=== PATIENT | male | born 1955 | race Caucasian/White ===

== ENCOUNTER → 2017-12-01 | Day surgery (SDC) | payer OTHER ==
[~2017-12-01] MED LIST: CEFTRIAXONE SOD 1 GM VIAL ONE; CHLORTHALIDONE25 MG PO; FENTANYL CITRATE/PF 100MCG/2 ML INJ ONE; GLIMEPIRIDE2 MG PO; LIDOCAINE HCL 2% LOCAL INJ 5 ML SDV VIAL INJ ONE; LISINOPRIL2.5 MG PO; LOVASTATIN40 MG PO; METFORMIN HCL500 MG PO; MIDAZOLAM HCL 2 MG/2 ML VIAL ONE; PANTOPRAZOLE SO40 MG PO; PROAIR HFA INH8.5 GM PO; PROPOFOL IV EMULSION 10 MG/ML 20 ML VIAL ONE; SUCRALFATE1 GM PO; VITAMIN C500 M4 PO
--- NOTE | 2017-12-01 11:18 | Diagnostic Imaging Report ---
PROCEDURE: Frontal and lateral views of the chest. COMPARISON: None. INDICATIONS: PRE OPERATIVE CHEST X-RAY FOR BLADDER TUMOR FINDINGS: Lines/tubes: None. Lungs: The lungs are well inflated. Left basilar opacity, likely atelectasis. There is no evidence of pneumonia or pulmonary edema. Pleura: There is no pleural effusion or pneumothorax. Heart and mediastinum: The cardiomediastinal silhouette is unremarkable. Bones: No acute bony abnormality. IMPRESSION: No acute cardiopulmonary disease. Dictated by: POWER MCCLAIN M.D. on 12/01/2017 at 11:15 Electronically approved by: POWER MCCLAIN M.D. on 12/01/2017 at 11:15
[2017-12-01 11:54] LABS: BASOPHILS # (AUTO) 0.1 (0.0-0.1); BASOPHILS % 1.3 % (0.0-1.0); EOSINOPHILS # (AUTO) 0.4 (0.0-0.4); EOSINOPHILS % 4.7 % (0.0-6.0); HEMATOCRIT 30.6 % (38.2-49.6); HEMOGLOBIN 9.2 g/dL (14.0-18.0); LYMPHOCYTES % 26.1 % (18.0-39.1); MEAN CORPUSCULAR HEMOGLOBIN 22.1 pg (28-32); MEAN CORPUSCULAR HGB CONC 30.1 g/dL (31-35); MEAN CORPUSCULAR VOLUME 73.6 fL (81-99); MONOCYTES # (AUTO) 0.8 (0.2-0.8); MONOCYTES % 10.2 % (4.4-11.3); NEUTROPHILS # (AUTO) 4.3 (2.1-6.9); NEUTROPHILS % 56.9 % (38.7-80.0); PLATELET COUNT 388 x10e3/uL (140-360); RED BLOOD COUNT 4.16 x10e6/uL (4.3-5.7); RED CELL DISTRIBUTION WIDTH 17.5 % (11.7-14.4)
--- OUTSIDE RECORDS SUMMARY | 2018-01-21 02:16 | XMS REPORT ---
Author Author [facility] Address Unknown Phone Unavailable Care Team Providers Care Deicer Repairer Name Role Phone JAIME HOLLINGSWORTH Unavailable Unavailable Problems This patient has no known problems. Allergies, Adverse Reactions, Alerts This patient has no known allergies or adverse reactions. Medications This patient has no known medications. Results Test Description Test Time Test Comments Text Results Atomic Results Result Comments CHEST 2 VIEWS 2017-12-01 11:15:00 [place] [id number] Patient Name: SIDDHARTH GUTIERREZ MR #: [id number] : 1955 Age/Sex: 62/M Req #: [id number] [facility] Physician: Ordered by: JAIME HOLLINGSWORTH MD Report #: [id number] Location: OR Room/Bed: Procedure: [id number] DX/CHEST 2 VIEWS Exam Date: 12/01/17 Exam Time: 1025 REPORT STATUS: Signed PROCEDURE: Frontal and lateral views of the chest. COMPARISON: None. INDICATIONS: PRE OPERATIVE CHEST X-RAY FOR BLADDER TUMOR FINDINGS: Lines/tubes: None. Lungs: The lungs are well inflated. Left basilar opacity, likely atelectasis. There is no evidence of pneumonia or pulmonary edema. Pleura: There is no pleural effusion or pneumothorax. Heart and mediastinum: The cardiomediastinal silhouette is unremarkable. Bones: No acute bony abnormality. IMPRESSION: No acute cardiopulmonary disease. Dictated by: POWER MCCLAIN M.D. on 12/01/2017 at 11:15 Electronically approved by: POWER MCCLAIN M.D. on 12/01/2017 at 11:15 Dictated By: POWER MCCLAIN MD [id number] COPY TO: JAIME HOLLINGSWORTH MD
--- OUTSIDE RECORDS SUMMARY | 2018-01-21 02:16 | XMS REPORT | Clinical Summary ---
Author Author [facility] Organization [facility] Address Unknown Phone Unavailable Care Team Providers Care Liquor Runner Name Role Phone Tonya Encarnacion MD PCP Allergies No Known Allergies Current Medications Prescription Sig. Disp. Refills Start End Date Status Date MULTIVIT-MINS/IRON/FOLIC/ Take by mouth. Active LYCOP (CENTRUM MEN ORAL) pantoprazole (PROTONIX) Take 40 mg by mouth Active 40 MG EC tablet daily. chlorthalidone (HYGROTEN) Take 25 mg by mouth Active 25 MG tablet daily. glimepiride (AMARYL) 2 MG Take 2 mg by mouth daily Active tablet before breakfast. ticagrelor (BRILINTA) 90 Take 90 mg by mouth 2 Active mg tablet (two) times a day. metFORMIN (GLUCOPHAGE) Take 1,000 mg by mouth 2 Active 1,000 mg tablet (two) times a day with meals. aspirin (ECOTRIN) 81 MG Take 81 mg by mouth Active enteric coated tablet daily. lisinopril Take 5 mg by mouth daily. Active (PRINIVIL,ZESTRIL) 5 mg tablet albuterol (PROAIR Inhale 2 puffs every 6 Active HFA,PROVENTIL (six) hours as needed for HFA,VENTOLIN HFA) 90 wheezing. mcg/actuation inhaler LACTOSE-REDUCED FOOD Take by mouth. Active (ENSURE IMMUNE HEALTH ORAL) lovastatin (MEVACOR) 40 Take 40 mg by mouth 2 01/08/20 Active MG tablet nightly. 17 pravastatin (PRAVACHOL) Take 40 mg by mouth Active 40 MG tablet daily. NTS STEP 1 21 mg/24 hr See Admin Instructions. 6 05/09/19 Active 18 sucralfate (CARAFATE) 1 Take 1 g by mouth 3 2 05/03/19 Active gram tablet (three) times a day. 18 STIOLTO RESPIMAT 2.5-2.5 TAKE 2 INHALATIONS BY 4 g 2 08/12/19 Active mcg/actuation inhalation MOUTH ONCE DAILY. 18 solution lovastatin (MEVACOR) 10 Take 40 mg by mouth 02/04/20 Discontin MG tablet nightly. 17 ued tiotropium-olodaterol Take 2 inhalations by 1 each 2 01/09/20 (STIOLTO RESPIMAT) mouth daily for 30 days. 17 17 2.5-2.5 mcg/actuation inhalation solution STIOLTO RESPIMAT 2.5-2.5 TAKE 2 INHALATIONS BY 2 04/08/20 05/15/19 Discontin mcg/actuation inhalation MOUTH DAILY FOR 30 DAYS. 17 18 ued solution STIOLTO RESPIMAT 2.5-2.5 Take 2 inhalations by 4 g 2 05/15/19 Discontin mcg/actuation inhalation mouth once daily. 18 18 ued solution Active Problems Problem Noted Date Iron deficiency anemia due to chronic blood loss 01/09/2017 Overview: 2018 Regulatory BERNARDO (obstructive sleep apnea) Encounters Date Type Specialty Care Team Description 08/14/2017 Office Visit Pulmonology Satya Narvaez, Obstructive chronic MD bronchitis without exacerbation (Primary Dx); Tobacco dependence; Obstructive sleep apnea; Obesity due to excess calories, unspecified obesity severity; History of asbestos exposure 08/11/2017 Refill Pulmonology Satya Narvaez MD 05/15/2017 Office Visit Pulmonology Satya Narvaez Obstructive chronic MD bronchitis without exacerbation (Primary Dx); Tobacco dependence; Obstructive sleep apnea; Obesity due to excess calories, unspecified obesity severity; Sleep disorder, shift work 05/09/2017 Refill Pulmonology Mark Graham MD 04/22/2017 Telephone Pulmonology Satya Narvaez MD 03/02/2017 Orders Only Pulmonology Satya Narvaez, BERNARDO ( obstructive sleep MD apnea) (Primary Dx) 02/16/2017 Procedure visit Oncology Nimo Ulloa, Anemia, unspecified type MD (Primary Dx); Iron deficiency anemia secondary to inadequate dietary iron intake 02/11/2017 Transcribe Access Nimo Ulloa, Iron deficiency anemia Orders MD secondary to inadequate dietary iron intake (Primary Dx); Anemia, unspecified type 02/03/2017 Office Visit Pulmonology Satya Narvaez Obstructive chronic MD bronchitis without exacerbation (Primary Dx); Tobacco dependence; Obstructive sleep apnea; Obesity due to excess calories, unspecified obesity severity; Sleep disorder, shift work; History of asbestos exposure 01/27/2017 Infusion Oncology Nimo Ulloa, Iron deficiency anemia MD secondary to inadequate dietary iron intake (Primary Dx); Iron deficiency anemia due to chronic blood loss 01/26/2017 Lab Lab Nimo Ulloa, Iron deficiency anemia MD secondary to inadequate dietary iron intake (Primary Dx) 01/26/2017 Transcribe Access Nimo Ulloa, Iron deficiency anemia Orders MD secondary to inadequate dietary iron intake (Primary Dx) 01/19/2017 Orders Only Pulmonology Ita Duque MA Obstructive chronic bronchitis without exacerbation (Primary Dx); Obstructive sleep apnea 01/09/2017 Infusion Oncology Nimo Ulloa, Iron deficiency anemia secondary to blood loss (chronic) (Primary Dx) 01/09/2017 Transcribe Access Nimo Ulloa, Iron deficiency anemia Orders MD secondary to blood loss (chronic) (Primary Dx) 01/08/2017 Office Visit Pulmonology Satya Narvaez Obstructive chronic MD bronchitis without exacerbation (Primary Dx) 12/18/2016 [facility] Radiology Satya Narvaez, Encounter 12/18/2016 [facility] Pulmonology Satya Narvaez, Encounter 12/04/2016 Orders Only Pulmonology Satya Narvaez DOE ( dyspnea on MD exertion); Obstructive sleep apnea (adult) (pediatric); Tobacco dependence; Encounter for screening for malignant neoplasm of respiratory organs 12/03/2016 Office Visit Pulmonology Satya Narvaez DOE ( dyspnea on exertion) (Primary Dx); Cough; Wheezing; Tobacco dependence; Obstructive sleep apnea (adult) (pediatric); Obesity due to excess calories, unspecified obesity severity; Encounter for screening for malignant neoplasm of respiratory organs; Sleep disorder, shift work; History of asbestos exposure after 12/02/2016 Family History Medical History Relation Name Comments No Known Problems Father Diabetes Mother Relation Name Status Comments Father Mother Social History Tobacco Use Types Packs/Day Years Used Date Current Every Day Smoker Cigarettes 0.25 45 Started: 12/04/1971 Smokeless Tobacco: Never Used Tobacco Cessation: Ready to Quit: Yes; Counseling Given: Yes Alcohol Use Drinks/Week oz/Week Comments Yes 1 Cans of 0.6 on occasion beer Sex Assigned at Date Recorded Not on file Last Filed Vital Signs Vital Sign Reading Time Taken Blood Pressure 117/71 08/14/2017 9:26 AM CDT Pulse 109 08/14/2017 9:26 AM CDT Temperature 36.6 C (97.8 F) 08/14/2017 9:26 AM CDT Respiratory Rate 13 08/14/2017 9:26 AM CDT Oxygen Saturation 98% 08/14/2017 9:26 AM CDT Inhaled Oxygen - - Concentration Weight 112 kg (247 lb) 08/14/2017 9:26 AM CDT Height 177.8 cm (5' 10") 08/14/2017 9:26 AM CDT Body Mass Index 35.44 08/14/2017 9:26 AM CDT Plan of Treatment Health Maintenance Due Date Last Done Comments COLON CANCER SCREENING 08/10/2007 SHINGRIX VACCINE (#1) 08/10/2007 ZOSTER VACCINE 2017 INFLUENZA VACCINE 11/18/2017 Procedures Procedure Name Priority Date/Time Associated Diagnosis Comments INSERT PERIPHERAL IV Routine 03/03/2017 Results for this 12:40 PM COMPUTER AIDED DESIGN TECHNICIAN procedure are in the results section. BONE MARROW BIOPSY W/OUT Routine 03/03/2017 Anemia, unspecified type Results for this SEDATION 12:40 PM COMPUTER AIDED DESIGN TECHNICIAN procedure are in the results section. BIOPSY BONE MARROW Routine 03/03/2017 Anemia, unspecified type Results for this 12:40 PM COMPUTER AIDED DESIGN TECHNICIAN procedure are in the results section. GENERAL SLEEP STUDY Routine 03/02/2017 Obstructive chronic 12:29 PM COMPUTER AIDED DESIGN TECHNICIAN bronchitis without exacerbation Obstructive sleep apnea MISCELLANEOUS REFERRAL Routine 02/16/2017 Results for this TEST 7:38 PM CDT procedure are in the results section. SURGICAL PATHOLOGY Routine 02/16/2017 Results for this REQUEST 2:49 PM CDT procedure are in the results section. FLOW CYTOMETRY EVALUATION Routine 02/16/2017 Results for this 2:49 PM CDT procedure are in the results section. MANUAL DIFFERENTIAL Routine 02/16/2017 Results for this 1:06 PM CDT procedure are in the results section. CBC WITH PLATELET AND Routine 02/16/2017 Results for this DIFFERENTIAL 1:06 PM CDT procedure are in the results section. TRANSFUSE RED BLOOD CELLS Routine 01/27/2017 Iron deficiency anemia 11:58 AM CDT due to chronic blood loss ZZESTIMATED GFR STAT 01/27/2017 Results for this 9:33 AM CDT procedure are in the results section. COMPREHENSIVE METABOLIC STAT 01/27/2017 Results for this PANEL 9:33 AM CDT procedure are in the results section. LDH STAT 01/27/2017 Results for this 9:33 AM CDT procedure are in the results section. HAPTOGLOBIN STAT 01/27/2017 Results for this 9:33 AM CDT procedure are in the results section. PREPARE RBC Routine 01/26/2017 Results for this 5:22 PM CDT procedure are in the results section. TYPE AND SCREEN Routine 01/26/2017 Iron deficiency anemia Results for this 5:22 PM CDT secondary to inadequate procedure are in the dietary iron intake results section. GENERAL SLEEP STUDY Routine 01/13/2017 Obstructive sleep apnea 3:05 PM CDT (adult) (pediatric) GENERAL SLEEP STUDY Routine 01/13/2017 12:00 AM CDT TRANSFUSE RED BLOOD CELLS Routine 01/09/2017 Iron deficiency anemia 3:44 PM CDT secondary to blood loss (chronic) PREPARE RBC Timed 01/09/2017 Iron deficiency anemia Results for this 10:55 AM CDT secondary to blood loss procedure are in the (chronic) results section. FOLATE RBC (GROUP TEST) STAT 01/09/2017 Results for this 10:55 AM CDT procedure are in the results section. TOTAL IRON BINDING STAT 01/09/2017 Results for this CAPACITY 10:55 AM CDT procedure are in the results section. VITAMIN B12 LEVEL STAT 01/09/2017 Results for this 10:55 AM CDT procedure are in the results section. TYPE AND SCREEN Timed 01/09/2017 Iron deficiency anemia Results for this 10:55 AM CDT secondary to blood loss procedure are in the (chronic) results section. CT CHEST LUNG CANCER Routine 12/18/2016 Tobacco dependence Results for this SCREENING 12:12 PM CDT Encounter for screening procedure are in the for malignant neoplasm of results section. respiratory organs after 12/02/2016 Results * Bone marrow biopsy w/out sedation (03/03/2017 12:40 PM) Procedure Note Nimo Ulloa MD - 02/16/2017 12:00 AM CDT [place], [place] PROCEDURE NOTE PATIENT NAME: SIDDHARTH GUTIERREZ ENCOUNTER NO: [id number] DATE OF : 1955 DATE OF ADMISSION: 02/16/2017 DATE OF PROCEDURE: 02/16/2017 ADMITTING PHYSICIAN: NIMO ULLOA MD RENDERING PROVIDER: NIMO ULLOA MD INDICATION: 1. Anemia and iron deficiency. 2. Failure to respond to iron infusion. PROCEDURE: Bone marrow aspirate and biopsy. The patient was prepped and draped in usual manner. The patient was cleaned with iodine. Next, a 2% Xylocaine was used to inject the right posterior iliac crest. Next, [employer] needle was introduced and marrow was easily aspirated. Next, a [employer] needle was introduced and 5 mL of marrow was aspirated. It was sent for flow cytometry as well as cytogenetics. Next, a Jamshidi needle was introduced and a core biopsy was obtained. The patient tolerated the procedure well. there are no complications. Estimated blood loss was negligible. [id number] Conf/ / Ref#: [id number] CC: [id number]/NIMO ULLOA MD * Biopsy bone marrow (03/03/2017 12:40 PM) Procedure Note Nimo Ulloa MD - 02/16/2017 12:00 AM CDT [place], [place] PROCEDURE NOTE PATIENT NAME: SIDDHARTH GUTIERREZ ENCOUNTER NO: [id number] DATE OF : 1955 DATE OF ADMISSION: 02/16/2017 DATE OF PROCEDURE: 02/16/2017 ADMITTING PHYSICIAN: NIMO ULLOA MD RENDERING PROVIDER: NIMO ULLOA MD INDICATION: 1. Anemia and iron deficiency. 2. Failure to respond to iron infusion. PROCEDURE: Bone marrow aspirate and biopsy. The patient was prepped and draped in usual manner. The patient was cleaned with iodine. Next, a 2% Xylocaine was used to inject the right posterior iliac crest. Next, [employer] needle was introduced and marrow was easily aspirated. Next, a [employer] needle was introduced and 5 mL of marrow was aspirated. It was sent for flow cytometry as well as cytogenetics. Next, a Jamshidi needle was introduced and a core biopsy was obtained. The patient tolerated the procedure well. there are no complications. Estimated blood loss was negligible. [id number] Conf/ / Ref#: [id number] CC: [id number]/NIMO ULLOA MD * Insert peripheral IV (03/03/2017 12:40 PM) Procedure Note Nimo Ulloa MD - 02/16/2017 12:00 AM CDT [place], [place] PROCEDURE NOTE PATIENT NAME: SIDDHARTH GUTIERREZ ENCOUNTER NO: [id number] DATE OF : 1955 DATE OF ADMISSION: 02/16/2017 DATE OF PROCEDURE: 02/16/2017 ADMITTING PHYSICIAN: NIMO ULLOA MD RENDERING PROVIDER: NIMO ULLOA MD INDICATION: 1. Anemia and iron deficiency. 2. Failure to respond to iron infusion. PROCEDURE: Bone marrow aspirate and biopsy. The patient was prepped and draped in usual manner. The patient was cleaned with iodine. Next, a 2% Xylocaine was used to inject the right posterior iliac crest. Next, [employer] needle was introduced and marrow was easily aspirated. Next, a [facility] needle was introduced and 5 mL of marrow was aspirated. It was sent for flow cytometry as well as cytogenetics. Next, a Jamshidi needle was introduced and a core biopsy was obtained. The patient tolerated the procedure well. there are no complications. Estimated blood loss was negligible. [id number] Conf/ / Ref#: [id number] CC: [id number]/NIMO ULLOA MD * General sleep study (03/02/2017 12:29 PM) Narrative Performed At * Miscellaneous referral test (02/16/2017 7:38 PM) [facility] test name TOMAS ANAL [facility] test result see note [facility] Comment: Chromosome Analysis Indication: Anemia, unspec, Atherosclerotic heart disease of [place] coronary artery without angina pectoris Sample: Bone Marrow Method: GTG-banding RESULTS: 46,XY[20] INTERPRETATION : Normal male chromosome analysis with no clonal abnormalities observed. A Cancer Chromosomal Microarray Analysis (Test Code 9515) is also available to evaluate genomic aberrations that could be missed by conventional cytogenetic analysis. Test performed by: [facility] [employer] [address] [place] [address] Narrative Performed At BONE MARROW for Chromosome Analysis [facility] Performing Organization Address City/State/Zipcode Phone Number [facility] [address] [place] [address] * Flow cytometry evaluation (02/16/2017 2:49 PM) [facility] DEPARTMENT OF PATHOLOGY AND GENOMIC MEDICINE Flow cytometry evaluation See link below for PDF Lab [facility] DEPARTMENT OF Report PATHOLOGY AND GENOMIC MEDICINE Performing Organization Address City/State/Zipcode Phone Number [facility] [address] [place] [phone] PATHOLOGY AND GENOMIC MEDICINE * Surgical pathology request (02/16/2017 2:49 PM) [facility] DEPARTMENT OF PATHOLOGY AND GENOMIC MEDICINE Surgical pathology report See link below for PDF Lab [facility] DEPARTMENT OF Report PATHOLOGY AND GENOMIC MEDICINE Performing Organization Address City/State/Zipcode Phone Number [facility] DEPARTMENT [address] [place] [address] PATHOLOGY AND GENOMIC MEDICINE * Manual differential (02/16/2017 1:06 PM) Manual differential PERFORMED [facility] DEPARTMENT OF PATHOLOGY AND GENOMIC MEDICINE Neutrophils 84.0 (H)Comment: Corrected 36.0 - 66.0 % [facility] DEPARTMENT OF result; previously reported as PATHOLOGY AND 68.3 on 02/16/2017 at 13:43 by GENOMIC MEDICINE I/AUT Lymphocytes 8.0 (L)Comment: Corrected 24.0 - 44.0 % [facility] DEPARTMENT OF result; previously reported as PATHOLOGY AND 18.9 on 02/16/2017 at 13:43 by GENOMIC MEDICINE I/AUT Monocytes 5.0Comment: Corrected result; 0.0 - 6.0 % [facility] DEPARTMENT OF previously reported as 7.6 on PATHOLOGY AND 02/16/2017 at 13:43 by I/AUT GENOMIC MEDICINE Eosinophils 3.0Comment: Corrected result; 0.0 - 6.0 % [facility] DEPARTMENT OF previously reported as 4.0 on PATHOLOGY AND 02/16/2017 at 13:43 by I/AUT GENOMIC MEDICINE Basophils 0.0Comment: Corrected result; 0.0 - 1.2 % [facility] DEPARTMENT OF previously reported as 0.7 on PATHOLOGY AND 02/16/2017 at 13:43 by I/AUT GENOMIC MEDICINE Metamyelocytes 0 0 - 1 % [facility] DEPARTMENT OF PATHOLOGY AND GENOMIC MEDICINE Promyelocytes 0 0 - 1 % [facility] DEPARTMENT OF PATHOLOGY AND GENOMIC MEDICINE Platelet slide review Geovani slt incr [facility] DEPARTMENT OF PATHOLOGY AND GENOMIC MEDICINE Anisocytosis Slight [facility] DEPARTMENT OF PATHOLOGY AND GENOMIC MEDICINE Ovalocytes Few [facility] DEPARTMENT OF PATHOLOGY AND GENOMIC MEDICINE Performing Organization Address City/State/Zipcode Phone Number [facility] DEPARTMENT OF [address] [place] [address] PATHOLOGY AND GENOMIC MEDICINE * CBC with platelet and differential (02/16/2017 1:06 PM) WBC 8.2 4.2 - 11.0 k/uL [facility] DEPARTMENT OF PATHOLOGY AND GENOMIC MEDICINE RBC 3.54 (L) 4.04 - 5.86 m/uL [facility] DEPARTMENT OF PATHOLOGY AND GENOMIC MEDICINE HGB 8.5 (L) 13.0 - 17.3 g/dL [facility] DEPARTMENT OF PATHOLOGY AND GENOMIC MEDICINE HCT 28.8 (L) 34.0 - 45.0 % [facility] DEPARTMENT OF PATHOLOGY AND GENOMIC MEDICINE MCV 81.4 80.0 - 98.0 fL [facility] DEPARTMENT OF PATHOLOGY AND GENOMIC MEDICINE MCH 24.0 (L) 27.0 - 34.0 pg [facility] DEPARTMENT OF PATHOLOGY AND GENOMIC MEDICINE MCHC 29.5 (L) 31.5 - 36.5 g/dL [facility] DEPARTMENT OF PATHOLOGY AND GENOMIC MEDICINE RDW - SD 54.3 (H) 37.0 - 51.0 fL [facility] DEPARTMENT PATHOLOGY AND GENOMIC MEDICINE MPV 9.0 7.4 - 10.4 fL [facility] DEPARTMENT OF PATHOLOGY AND GENOMIC MEDICINE Platelet count 417 (H) 150 - 400 k/uL [facility] DEPARTMENT OF PATHOLOGY AND GENOMIC MEDICINE Nucleated RBC 0.00 /100 WBC [facility] DEPARTMENT OF PATHOLOGY AND GENOMIC MEDICINE Neutrophils 84.0 (H)Comment: Corrected 36.0 - 66.0 % [facility] DEPARTMENT OF result; previously reported as PATHOLOGY AND 68.3 on 02/16/2017 at 13:43 by [employer] [facility] I/[employer] Lymphocytes 8.0 (L)Comment: Corrected 24.0 - 44.0 % [facility] DEPARTMENT OF result; previously reported as PATHOLOGY AND 18.9 on 02/16/2017 at 13:43 by [employer] MEDICINE I/AUT Monocytes 5.0Comment: Corrected result; 0.0 - 6.0 % [facility] DEPARTMENT OF previously reported as 7.6 on PATHOLOGY AND 02/16/2017 at 13:43 by I/AUT [employer] [facility]ICINE Eosinophils 3.0Comment: Corrected result; 0.0 - 6.0 % [facility] DEPARTMENT OF previously reported as 4.0 on PATHOLOGY AND 02/16/2017 at 13:43 by I/AUT [employer] [facility]ICINE Basophils 0.0Comment: Corrected result; 0.0 - 1.2 % [facility] DEPARTMENT OF previously reported as 0.7 on PATHOLOGY AND 02/16/2017 at 13:43 by I/[employer] MEDICINE Performing Organization Address City/State/Zipcode Phone Number [facility] DEPARTMENT OF [address] [place] [address] PATHOLOGY AND [employer] MEDICINE * Transfuse RBC (01/27/2017 11:58 AM) Only the most recent of 2 results within the time period is included. * Estimated GFR (01/27/2017 9:33 AM) GFR Non Af Amer 86 mL/min/1.73 m2 [facility] DEPARTMENT OF PATHOLOGY AND GENOMIC MEDICINE GFR Af Amer >90 mL/min/1.73 m2 [facility] DEPARTMENT OF Comment: PATHOLOGY AND Chronic kidney disease: <60 GENOMIC MEDICINE mL/min/1.73m2 Kidney failure: <15 mL/min/1.73m2 The estimated GFR is calculated from the [facility]-traceable Modification of Diet in Renal Disease Equation. The accuracy of the calculation is poor when the creatinine is normal. Calculated values >90 mL/min/1.73m2 are not reported. This equation has not been validated in children (<18 years), women, the elderly (>70 years), or ethnic groups other than Caucasians and Americans. Specimen Plasma specimen Performing Organization Address City/State/Zipcode Phone Number [facility] [address] [place] [address] PATHOLOGY AND GENOMIC MEDICINE * LDH (01/27/2017 9:33 AM) LDH 134 81 - 234 U/L [facility] PATHOLOGY AND [employer] MEDICINE Specimen Plasma specimen Performing Organization Address City/[facility] Phone [facility] [address] [place] [address] PATHOLOGY AND [employer] [facility] * Haptoglobin (01/27/2017 9:33 AM) Haptoglobin 196 30 - 200 mg/dL [facility] DEPARTMENT PATHOLOGY AND [employer] MEDICINE Specimen Plasma specimen Performing Organization Address City/[facility] Phone Number [facility] [address] [place] [phone] PATHOLOGY AND [employer] MEDICINE * Comprehensive metabolic panel (01/27/2017 9:33 AM) Sodium 136 135 - 150 mEq/L [facility] DEPARTMENT OF PATHOLOGY AND [employer] MEDICINE Potassium 3.8 3.5 - 5.0 mEq/L [facility] DEPARTMENT OF PATHOLOGY AND [employer] MEDICINE Chloride 102 100 - 109 mEq/L [facility] DEPARTMENT OF PATHOLOGY AND GENOMIC MEDICINE CO2 26 24 - 32 mmol/L [facility] DEPARTMENT OF PATHOLOGY AND [employer] MEDICINE Anion gap 8 7 - 15 mEq/L [facility] DEPARTMENT OF Comment: PATHOLOGY AND Starting from July [facility] , anion gap calculation no longer incorporates potassium. Please note the change. BUN 19 (H) 7 - 18 mg/dL [facility] DEPARTMENT OF PATHOLOGY AND [employer] MEDICINE Creatinine 0.9 0.8 - 1.5 mg/dL [facility] DEPARTMENT OF PATHOLOGY AND [employer] MEDICINE Glucose 193 (H) 65 - 100 mg/dL [facility] DEPARTMENT OF PATHOLOGY AND [employer] MEDICINE Calcium 8.1 (L) 8.6 - 10.7 mg/dL [facility] DEPARTMENT OF PATHOLOGY AND GENOMIC MEDICINE Protein 6.4 6.3 - 8.2 g/dL [facility] DEPARTMENT OF PATHOLOGY AND GENOMIC MEDICINE Albumin 3.3 3.2 - 5.0 g/dL [facility] DEPARTMENT OF PATHOLOGY AND GENOMIC MEDICINE A/G ratio 1.1 0.7 - 3.8 [facility] DEPARTMENT OF PATHOLOGY AND GENOMIC MEDICINE Alkaline phosphatase 94 30 - 120 U/L [facility] DEPARTMENT OF PATHOLOGY AND GENOMIC MEDICINE AST 18 15 - 37 U/L [facility] DEPARTMENT PATHOLOGY AND GENOMIC MEDICINE ALT 30 30 - 65 U/L [facility] DEPARTMENT PATHOLOGY AND GENOMIC MEDICINE Total bilirubin 0.2 0.2 - 1.2 mg/dL [facility] DEPARTMENT PATHOLOGY AND GENOMIC MEDICINE Specimen Plasma specimen Performing Organization Address City/[facility]/[place] [address] PATHOLOGY AND GENOMIC [facility] * Prepare RBC (01/26/2017 5:22 PM) Only the most recent of 2 results within the time period is included. Product name Red Blood Cells -1, Leukored [facility] DEPARTMENT OF PATHOLOGY AND GENOMIC MEDICINE Unit number [id number] [facility] DEPARTMENT OF PATHOLOGY AND GENOMIC MEDICINE Product code [id number] [facility] DEPARTMENT OF PATHOLOGY AND GENOMIC MEDICINE Dispense status Transfused [facility] [facility] [place] [facility] PATHOLOGY AND GENOMIC MEDICINE Blood expiration date [id number] [facility] [place] DEPARTMENT OF PATHOLOGY AND GENOMIC MEDICINE Blood type code 5100 [facility] [place] DEPARTMENT PATHOLOGY AND GENOMIC MEDICINE Blood type O POSITIVE [facility] DEPARTMENT PATHOLOGY AND GENOMIC MEDICINE Performing Organization Address City/[facility] [place] [address] PATHOLOGY AND [facility] MEDICINE * Type and screen (01/26/2017 5:22 PM) Only the most recent of 2 results within the time period is included. ABO grouping O [facility] DEPARTMENT OF PATHOLOGY AND GENOMIC MEDICINE Rh type POS [facility] [place] DEPARTMENT PATHOLOGY AND GENOMIC MEDICINE Antibody screen (gel) NEG [facility] PATHOLOGY AND GENOMIC MEDICINE Specimen Blood Performing Organization Address City/[facility] [place] [address] PATHOLOGY AND GENOMIC [facility] * General sleep study (01/13/2017 3:05 PM) Narrative Performed At * General sleep study (01/13/2017) Narrative Performed At * Total iron binding capacity (01/09/2017 10:55 AM) Iron level 43 (L) 76 - 198 ug/dL [facility] [place] DEPARTMENT OF PATHOLOGY AND GENOMIC MEDICINE Iron binding capacity 332 271 - 474 ug/dL [facility] [place] DEPARTMENT OF PATHOLOGY AND GENOMIC MEDICINE % Saturation 13.0 (L) 20.0 - 40.0 % [facility] [place] DEPARTMENT OF PATHOLOGY AND GENOMIC MEDICINE Specimen Blood Performing Organization Address City/[facility] Phone Number [facility] [address] [place] [place] [address] PATHOLOGY AND GENOMIC MEDICINE * Folate RBC (group test) (01/09/2017 10:55 AM) RBC folate 2,206 (H) 499 - 1,504 ng/mL [facility] DEPARTMENT OF PATHOLOGY AND GENOMIC MEDICINE Specimen Blood Performing Organization Address City/State/[facility]ode Phone Number [facility] [address] [place] [phone] PATHOLOGY AND GENOMIC MEDICINE * Vitamin B12 level (01/09/2017 10:55 AM) Vitamin B12 534 231 - 931 pg/mL [facility] [place] [facility] DEPARTMENT OF Comment: PATHOLOGY AND Significant overlap exists GENOMIC MEDICINE between normal and deficiency states. However, most patients with deficiencies will have Serum B12 <200 pg/mL. Specimen Serum Performing Organization Address City/[facility]ode Phone Number [facility] [place] DEPARTMENT OF [address] [place] [address] PATHOLOGY AND GENOMIC MEDICINE * CT Chest Lung Cancer Screening (12/18/2016 12:12 PM) Narrative Performed At EXAMINATION: CT CHEST LUNG CANCER SCREENING RADIANT CLINICAL HISTORY: 61 years Male F17.200 Nicotine dependence unspecified uncomplicated, Z12.2 Encounter for screening for malignant neoplasm of respiratory organs, Lung cancer screening COMPARISON: None. TECHNIQUE: CT of the chest without intravenous contrast, using a low dose lung cancer screening protocol. Absence of contrast decreases sensitivity for detection of focal lesions and vascular pathology. CT imaging was performed with iterative reconstruction techniques and/or automated exposure control to reduce radiation dose. FINDINGS: LUNGS and PLEURA: Lungs and airways are normal without focal abnormality. Pleural spaces are clear. There are no pulmonary nodules appreciated. HEART and MEDIASTINUM: Mild calcifications in the thoracic aorta which is nonaneurysmal. Moderate coronary artery disease. No thoracic adenopathy. ABDOMEN: Limited low dose and unenhanced views of the upper abdomen are unremarkable. BONES and SOFT TISSUES: Degenerative changes in the right shoulder. IMPRESSION: No suspicious pulmonary nodules. Additional findings as above. Lung-Rads Category/Recommendation: Category 1. Continued annual screening with low dose CT in 12 months. Explanation of the Lung-Rads categories can be found at: [email or web address]/ As sessmentCategories [facility]-[id number] Procedure Note Interface, Radiology Results Incoming - 12/18/2016 12:26 PM CDT EXAMINATION: CT CHEST LUNG CANCER SCREENING CLINICAL HISTORY: 61 years Male F17.200 Nicotine dependence unspecified uncomplicated, Z12.2 Encounter for screening for malignant neoplasm of respiratory organs, Lung cancer screening COMPARISON: None. TECHNIQUE: CT of the chest without intravenous contrast, using a low dose lung cancer screening protocol. Absence of contrast decreases sensitivity for detection of focal lesions and vascular pathology. CT imaging was performed with iterative reconstruction techniques and/or automated exposure control to reduce radiation dose. FINDINGS: LUNGS and PLEURA: Lungs and airways are normal without focal abnormality. Pleural spaces are clear. There are no pulmonary nodules appreciated. HEART and MEDIASTINUM: Mild calcifications in the thoracic aorta which is nonaneurysmal. Moderate coronary artery disease. No thoracic adenopathy. ABDOMEN: Limited low dose and unenhanced views of the upper abdomen are unremarkable. BONES and SOFT TISSUES: Degenerative changes in the right shoulder. IMPRESSION: No suspicious pulmonary nodules. Additional findings as above. Lung-Rads Category/Recommendation: Category 1. Continued annual screening with low dose CT in 12 months. Explanation of the Lung-Rads categories can be found at: [email or web address]/-/ [email or web address]/LungRads/AssessmentCategories [facility]-[id number] Performing Organization Address City/State/Zipcode Phone Number [facility] [address] [place] [address] after 12/02/2016 Insurance Payer Benefit Subscriber ID Type Phone Address Plan / Group [facility] UM xxxxxxxxxxxx PPO [facility] [employer] CHOICE NTWK
--- NOTE | 2018-01-21 12:54 | Operative Report ---
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 POSTOPERATIVE DIAGNOSIS: Transitional cell carcinoma of the bladder. OPERATIVE PROCEDURES PERFORMED 1. Cystoscopy. 2. Bladder biopsies. ANESTHESIA: General anesthesia. ESTIMATED BLOOD LOSS: Minimal. INDICATIONS: Mr. Fernandez is a 62-year-old gentleman with a prior history of TCC of the bladder, who recently was found by the office cystoscopy to have a recurrent tumor. He now presents for management of this problem. PROCEDURE IN DETAIL: The patient was brought into the operating room and placed in supine position. After administration of general anesthesia, he was placed in dorsal lithotomy position and prepped and draped in usual sterile fashion. Cystourethroscopy was performed using a 22-German cystoscope. The anterior and posterior urethra were noted to be normal. The prostate revealed mild trilobar hyperplasia with mild obstruction. The bladder was entered without difficulty. Upon entrance into the bladder, the ureteral orifices were in normal anatomical position and produced clear efflux. Just superior to the left ureteral orifice was a small papillary TCC. There were no other papillary lesions seen throughout the bladder. This tumor was grasped with cold cup bladder biopsy forceps and removed in its entirety. The Bugbee electrode was then used to fulgurate the base. This was sent to pathology for microscopic analysis. The bladder was then drained in its entirety and the cystoscope and sheath were removed. Patient was returned to supine position and anesthesia was reversed. She was transferred to a bed and taken to the postanesthesia care unit in good condition. Of note, the needle and instrument counts were correct at the conclusion of the case. Job#: [id number]
== END | disposition home or self-care (01) ==
LOC: OR 09:12
PROVIDERS: ATTEND Urology
DX: C67.4 Malignant neoplasm of posterior wall of bladder (principal); N40.1 Benign prostatic hyperplasia with lower urinary tract symptoms; N13.8 Other obstructive and reflux uropathy; I25.10 Atherosclerotic heart disease of native coronary artery without angina pectoris; I10 Essential (primary) hypertension; E11.9 Type 2 diabetes mellitus without complications; J44.9 Chronic obstructive pulmonary disease, unspecified; K21.9 Gastro-esophageal reflux disease without esophagitis; E78.5 Hyperlipidemia, unspecified; G47.33 Obstructive sleep apnea (adult) (pediatric); F17.210 Nicotine dependence, cigarettes, uncomplicated; Z79.82 Long term (current) use of aspirin; Z79.84 Long term (current) use of oral hypoglycemic drugs; Z68.34 Body mass index [BMI] 34.0-34.9, adult
CPT/HCPCS: 36415; 52234; 71046; 85025; 88305; 93005; J0696; J2001; J2250

== ENCOUNTER 2019-05-28 11:38 | Emergency (ER) | payer OTHER ==
[~2019-05-28] VITALS: Ht 177.8 cm; Wt 104.3 kg
[~2019-05-28 11:38] MED LIST changes: -CEFTRIAXONE SOD 1 GM VIAL ONE; -FENTANYL CITRATE/PF 100MCG/2 ML INJ ONE; -LIDOCAINE HCL 2% LOCAL INJ 5 ML SDV VIAL INJ ONE; -MIDAZOLAM HCL 2 MG/2 ML VIAL ONE; -PROPOFOL IV EMULSION 10 MG/ML 20 ML VIAL ONE
[2019-05-28 12:28] LABS: BASOPHILS # (AUTO) 0.1 (0.0-0.1); BASOPHILS % 1.1 % (0.0-1.0); EOSINOPHILS # (AUTO) 0.4 (0.0-0.4); EOSINOPHILS % 4.5 % (0.0-6.0); HEMATOCRIT 43.3 % (38.2-49.6); HEMOGLOBIN 12.8 g/dL (14.0-18.0); LYMPHOCYTES # (AUTO) 1.8 (1.0-3.2); LYMPHOCYTES % 19.3 % (18.0-39.1); MEAN CORPUSCULAR HEMOGLOBIN 23.4 pg (28-32); MEAN CORPUSCULAR HGB CONC 29.6 g/dL (31-35); MEAN CORPUSCULAR VOLUME 79.2 fL (81-99); MONOCYTES # (AUTO) 0.6 (0.2-0.8); MONOCYTES % 6.3 % (4.4-11.3); NEUTROPHILS # (AUTO) 6.2 (2.1-6.9); NEUTROPHILS % 68.5 % (38.7-80.0); PLATELET COUNT 382 x10e3/uL (140-360); RED BLOOD COUNT 5.47 x10e6/uL (4.3-5.7)
[2019-05-28 12:56] LABS: INR 0.91; PARTIAL THROMBOPLASTIN TIME 31.5 seconds (23.8-35.5); PROTHROMBIN TIME 12.8 seconds (11.9-14.5)
[2019-05-28 13:05] LABS: ALANINE AMINOTRANSFERASE 15 IU/L (0-55); ALBUMIN 3.5 g/dL (3.5-5.0); ALBUMIN/GLOBULIN RATIO 1.2 (0.8-2.0); ALKALINE PHOSPHATASE 106 IU/L (40-150); ANION GAP 15.5 mmol/L (8-16); BLOOD UREA NITROGEN 8 mg/dL (7-26); BUN/CREATININE RATIO 10 (6-25); CALCIUM 8.8 mg/dL (8.4-10.2); CARBON DIOXIDE 25 mmol/L (22-29); CHLORIDE 102 mmol/L (98-107); CREATININE, SERUM 0.83 mg/dL (0.72-1.25); EST GLOMERULAR FILTRATION RATE > 60 ML/MIN (60-); GLUCOSE 173 mg/dL (74-118); POTASSIUM 3.5 mmol/L (3.5-5.1); SODIUM 139 mmol/L (136-145)
[2019-05-28 13:47] LABS: CLARITY,URINE CLOUDY (CLEAR); COLOR,URINE AMBER (YELLOW)
[2019-05-28 13:48] LABS: BILIRUBIN,URINE SMALL (NEGATIVE); KETONES,URINE TRACE (NEGATIVE); LEUKOCYTE ESTERASE ,URINE NEGATIVE (NEGATIVE); NITRITE,URINE NEGATIVE (NEGATIVE); PROTEIN,URINE DIPSTICK 2+ (NEGATIVE); URINE UROBILINOGEN 1 mg/dL (0.2 - 1)
[2019-05-28 13:49] LABS: BACTERIA,URINE FEW /HPF; RBC,URINE >50 /HPF (0-5)
--- NOTE | 2019-05-28 14:20 | Diagnostic Imaging Report ---
EXAMINATION: Scrotal ultrasound CLINICAL INDICATION: Testicular swelling. COMPARISON: None. TECHNIQUE: Grayscale and color Doppler evaluation of the scrotum was performed in transverse and longitudinal planes. FINDINGS: The right testicle measures 4.5 x 2.5 x 3.5 cm. No masses or calcifications.. The right epididymis measures 1.3 cm. No nodules or masses.. No right hydrocele or varicocele. Normal flow to the right testicle, without torsion. The left testicle measures 4.5 x 3 x 3.2 cm. No masses or calcifications.. Left epididymis not well seen. Bilateral hydrocele. No varicocele. Normal flow to the left testicle, without torsion. The scrotum has a normal appearance, without focal lesions. Impression: Bilateral hydroceles Signed by: Dr. Abran Cullen M.D. on 05/28/2019 2:17 PM
[2019-05-28 14:36] LABS: EPITHELIAL CELLS,URINE FEW /LPF
--- NOTE | 2019-05-28 15:03 | Diagnostic Imaging Report ---
EXAMINATION: CT of the abdomen and pelvis without contrast. TECHNIQUE: Helical CT images of the abdomen and pelvis were performed from the lung bases to the lesser trochanters. No intravenous contrast was given per renal stone protocol. Coronal and sagittal reformatted images were obtained. COMPARISON: None. CLINICAL HISTORY:Blood in the urine DISCUSSION: ABSENCE OF INTRAVENOUS CONTRAST DECREASES SENSITIVITY FOR DETECTION OF FOCAL LESIONS AND VASCULAR PATHOLOGY. ABDOMEN/PELVIS: LOWER THORAX: Unremarkable. HEPATOBILIARY:Possible cirrhotic liver morphology. SPLEEN: No splenomegaly. PANCREAS: No focal masses or ductal dilatation. ADRENALS: No adrenal nodules. KIDNEYS/URETERS: No hydronephrosis, stones, or solid mass lesions. PELVIC ORGANS/BLADDER: 2.6 x 2.1 anterior bladder wall polypoid mass. PERITONEUM/RETROPERITONEUM: No free air or fluid. LYMPH NODES: No intra-abdominal,retroperitoneal, pelvic or inguinal lymphadenopathy. VESSELS: The celiac trunk,superior and inferior mesenteric and bilateral renal arteries are patent The portal, superior mesenteric and splenic veins are patent. GI TRACT: No distention or wall thickening. A few scattered diverticula.. BONES AND SOFT TISSUES: No bony destructive lesions. No soft tissue abnormalities. IMPRESSION: 2.6 cm polypoid bladder mass concerning for transitional cell carcinoma. Recommend urologic follow-up. Signed by: Dr. Abran Cullen M.D. on 05/28/2019 3:00 PM
--- NOTE | 2019-05-28 15:10 | NUR ---
bladder scan performed, post void bladder scan was 11 mL.
[2019-05-28 15:57] VITALS: BP 156/82
[2019-05-31] MEDS ORDERED: LIPITOR10 MG PO (09:06)
[2019-05-31] MEDS ORDERED: TRELEGY ELLIPT1 EACH PO (09:07)
[2019-05-31] MEDS ORDERED: CEFUROXIME500 MG PO (09:08)
[2019-05-31] MEDS ORDERED: FLOMAX0.4 MG PO (09:08)
== END 2019-05-28 16:03 | disposition home or self-care (01) ==
LOC: ER 11:38
DX: N39.0 Urinary tract infection, site not specified (principal); N32.9 Bladder disorder, unspecified; N43.3 Hydrocele, unspecified; E11.9 Type 2 diabetes mellitus without complications; I10 Essential (primary) hypertension; K21.9 Gastro-esophageal reflux disease without esophagitis; E78.5 Hyperlipidemia, unspecified; Z85.51 Personal history of malignant neoplasm of bladder; Z79.4 Long term (current) use of insulin
CPT/HCPCS: 36415; 74176; 76870; 80053; 81001; 85025; 85610; 85730; 87086; 93976; 99283

== ENCOUNTER 2019-06-02 13:30 | Observation (INO) | payer OTHER ==
--- NOTE | 2019-05-31 10:02 | Diagnostic Imaging Report ---
Chest, PA and lateral. History: Bladder tumor. Preoperative evaluation. Comparison: None available. Discussion: The cardiomediastinal silhouette and pulmonary vasculature are within normal limits. The lungs are clear without evidence of consolidation or effusion. There are no acute osseous abnormalities. IMPRESSION: No acute cardiopulmonary abnormality. Signed by: Abraham Hines MD on 05/31/2019 10:00 AM
[~2019-06-02] VITALS: Ht 177.8 cm; Wt 104.8 kg
--- NOTE | 2019-06-02 | NUR ---
PATIENT LAYING IN BED IN STABLE CONDITION, PATIENT SHOWING SIGNS OF PAIN AND DISCOMFORT IN THE GROIN AREA. CBI IS IN PLACE AND IS BEING IRRIGATED. CLOTS HAVE BEEN REMOVED BUT PATIENT STILL IN PAIN. MEDICATION HAS BEEN ADMINISTERED WILL CONTINUE TO MONITOR. SITUATION.
[~2019-06-02 13:30] MED LIST changes: +CEFTRIAXONE SOD 1 GM/NS 50 ML 50 ML IV ONE; +CEFUROXIME500 MG PO; +FLOMAX0.4 MG PO; +IOPAMIDOL 300MG/ML 50ML INFUS..BTL IV ONE; +LIPITOR10 MG PO; +TRELEGY ELLIPT1 EACH PO
[2019-06-02] MEDS ORDERED: FENTANYL CITRATE/PF 100MCG/2 ML INJ ONE ×2 (13:36→14:15)
[2019-06-02] MEDS ORDERED: HYDROMORPHONE 1MG/1ML INJ ONE (14:07)
[2019-06-02] MEDS ORDERED: DEXTROSE 5%/0.9% SOD CHL 1,000 ML IV ONE (14:30)
[2019-06-02 15:50] VITALS: BP 153/70
[2019-06-02] MEDS: ACETAMINOPHEN/CODEINE 300MG - 30MG TAB PO PRN ×2 (16:26→22:05)
--- NOTE | 2019-06-02 16:35 | NUR ---
Interface Engineer Destini notified Dr. Michaud about the blood clots the patient is having and gonzalez catheter is not flowing freely. Ordered was given to remove the existing gonzalez catheter and replace a new one and initiate CBI.
[2019-06-02] MEDS ORDERED: MIDAZOLAM HCL 2 MG/2 ML VIAL ONE (18:02)
[2019-06-02] MEDS: CIPROFLOXACIN 500 MG TAB PO SCH (18:30)
[2019-06-02] MEDS ORDERED: SEVOFLURANE INHAL SOLN 250 ML PEN BTL ONE (18:57)
[2019-06-02] MEDS ORDERED: PROPOFOL IV EMULSION 10 MG/ML 20 ML VIAL ONE (18:57)
[2019-06-02] MEDS ORDERED: LIDOCAINE HCL 2% LOCAL INJ 5 ML SDV VIAL INJ ONE (18:57)
[2019-06-02] MEDS ORDERED: DEXAMETHASONE SOD PHOS INJ 4 MG/ML VIAL ONE (18:57)
[2019-06-02] MEDS: B&O 60MG R/S 60 MG SUPP PR SCH (19:31)
--- NOTE | 2019-06-02 19:32 | NUR ---
SPOKE WITH DR. HOLLINGSWORTH REGARDING THE PATIENT CLOTTING AND PAIN. HE WAS INFORMED BUT NO ORDERS GIVEN.
[2019-06-02 20:00] VITALS: BP 138/71
[2019-06-02 20:25] VITALS: BP 138/71
[2019-06-02] MEDS ORDERED: ALBUTEROL SULFATE HFA 8GM INHALATION AEROSOL INH PRN (20:30)
[2019-06-02] MEDS ORDERED: ATORVASTATIN 10 MG TAB PO SCH (21:00)
--- NOTE | 2019-06-02 21:00 | NUR ---
PATIENT MORE AT EASE AFTER CLOT WAS REMOVED, CBI IS FLOWING.
[2019-06-02] MEDS ORDERED: DEXTROSE 50% SYRINGE 50 ML IV PRN (21:30)
[2019-06-02] MEDS: INSULIN REGULAR, HUMAN 100 UNIT/1 ML 3ML VIAL SQ SCH (21:30)
[2019-06-02] MEDS: SUCRALFATE 1 GM TAB PO SCH (21:55)
[2019-06-02] MEDS: ATORVASTATIN 20 MG TAB PO SCH (21:55)
[2019-06-02] MEDS: CEFUROXIME AXETIL 250 MG TAB PO SCH (21:55)
[2019-06-03] VITALS (8 sets, daily range): BP systolic 121–134; BP diastolic 58–63
[2019-06-03] MEDS: HYDROCODONE/APAP 7.5MG-325MG 1 EA TAB PO PRN ×2 (02:00→06:50)
[2019-06-03 05:24] LABS: BASOPHILS # (AUTO) 0.1 (0.0-0.1); BASOPHILS % 0.6 % (0.0-1.0); EOSINOPHILS # (AUTO) 0.3 (0.0-0.4); EOSINOPHILS % 2.3 % (0.0-6.0); HEMATOCRIT 36.9 % (38.2-49.6); HEMOGLOBIN 10.9 g/dL (14.0-18.0); LYMPHOCYTES # (AUTO) 1.9 (1.0-3.2); LYMPHOCYTES % 16.5 % (18.0-39.1); MEAN CORPUSCULAR HEMOGLOBIN 23.5 pg (28-32); MEAN CORPUSCULAR HGB CONC 29.5 g/dL (31-35); MEAN CORPUSCULAR VOLUME 79.5 fL (81-99); MONOCYTES # (AUTO) 1.2 (0.2-0.8); MONOCYTES % 10.1 % (4.4-11.3); NEUTROPHILS # (AUTO) 8.2 (2.1-6.9); NEUTROPHILS % 70.1 % (38.7-80.0); PLATELET COUNT 395 x10e3/uL (140-360); RED BLOOD COUNT 4.64 x10e6/uL (4.3-5.7); RED CELL DISTRIBUTION WIDTH 19.2 % (11.7-14.4)
[2019-06-03 05:41] LABS: ANION GAP 11.5 mmol/L (8-16); BLOOD UREA NITROGEN 8 mg/dL (7-26); BUN/CREATININE RATIO 10 (6-25); CALCIUM 8.6 mg/dL (8.4-10.2); CARBON DIOXIDE 31 mmol/L (22-29); CHLORIDE 100 mmol/L (98-107); CREATININE, SERUM 0.77 mg/dL (0.72-1.25); EST GLOMERULAR FILTRATION RATE > 60 ML/MIN (60-); GLUCOSE 155 mg/dL (74-118); POTASSIUM 3.5 mmol/L (3.5-5.1); SODIUM 139 mmol/L (136-145)
[2019-06-03] MEDS: B&O 60MG R/S 60 MG SUPP PR SCH ×3 (06:50→21:25)
--- NOTE | 2019-06-03 06:55 | NUR ---
Report given to production shift supervisor. Respiration even and unlabored without SOB. Indwelling gonzalez catheter intact, in placed with CBI in placed, noted clear, no clots, light yellow-colored urine to bag. Denies pain at this time. Call light in reach.
--- NOTE | 2019-06-03 07:00 | NUR ---
PATIENT HAD MULTIPLE CLOTTING,WAS ABLE TO EASE PAIN AFTER REMOVING CLOT WITH HELP OF OB/GYN. MEDICATION FOR PAIN AND SPASMS ADMINISTERED.
--- NOTE | 2019-06-03 07:20 | NUR ---
Received patient lying in bed with eyes open. Respiration even and unlabored without SOB. Patient is on CBI. Patient complaints of pain and discomfort around the suprapubic area, intermittent manual irrigation is done. Clots are noted. Call light in reach.
[2019-06-03] MEDS: INSULIN REGULAR, HUMAN 100 UNIT/1 ML 3ML VIAL SQ SCH ×4 (07:30→21:25)
[2019-06-03] MEDS ORDERED: CEFUROXIME AXETIL 500 MG PO SCH (09:00)
[2019-06-03] MEDS: METFORMIN HCL 500 MG TAB PO SCH ×2 (09:45→18:24)
[2019-06-03] MEDS: GLIMEPIRIDE 2 MG TAB PO SCH ×2 (09:45→18:24)
[2019-06-03] MEDS: PANTOPRAZOLE SOD 40 MG TABEC PO SCH (09:45)
[2019-06-03] MEDS: SUCRALFATE 1 GM TAB PO SCH ×4 (09:45→21:25)
[2019-06-03] MEDS: TAMSULOSIN HCL 0.4 MG CAP PO SCH (09:46)
[2019-06-03] MEDS: CIPROFLOXACIN 500 MG TAB PO SCH ×2 (09:46→21:25)
[2019-06-03] MEDS: CEFUROXIME AXETIL 250 MG TAB PO SCH ×2 (09:46→21:25)
[2019-06-03] MEDS: CHLORTHALIDONE 25 MG TAB PO SCH (09:48)
[2019-06-03] MEDS ORDERED: MORPHINE SULFATE 2 MG/ML SYR 1ML IV ONE (09:55)
[2019-06-03] MEDS: DEXTROSE 5%/0.9% SOD CHL 1,000 ML IV SCH ×2 (10:00→20:33)
--- NOTE | 2019-06-03 19:07 | NUR ---
Received bedside report from day nurse. Patient resting in bed, no s/s of distress. CBI running. All safety measures in place. Will continue to monitor.
--- NOTE | 2019-06-03 19:27 | NUR ---
CBI total output amount is 37,900 ML. Indwelling gonzalez catheter intact, in placed with clear, yellow output noted.
[2019-06-03] MEDS: ATORVASTATIN 20 MG TAB PO SCH (21:25)
[2019-06-04] VITALS (8 sets, daily range): BP systolic 111–152; BP diastolic 55–65
[2019-06-04] MEDS: DEXTROSE 5%/0.9% SOD CHL 1,000 ML IV SCH ×2 (05:02→15:18)
[2019-06-04 05:58] LABS: BASOPHILS # (AUTO) 0.1 (0.0-0.1); BASOPHILS % 0.5 % (0.0-1.0); EOSINOPHILS % 0.4 % (0.0-6.0); HEMATOCRIT 33.3 % (38.2-49.6); HEMOGLOBIN 9.8 g/dL (14.0-18.0); LYMPHOCYTES # (AUTO) 1.7 (1.0-3.2); LYMPHOCYTES % 15.5 % (18.0-39.1); MEAN CORPUSCULAR HEMOGLOBIN 23.3 pg (28-32); MEAN CORPUSCULAR HGB CONC 29.4 g/dL (31-35); MEAN CORPUSCULAR VOLUME 79.1 fL (81-99); MONOCYTES # (AUTO) 1.4 (0.2-0.8); NEUTROPHILS # (AUTO) 7.6 (2.1-6.9); NEUTROPHILS % 70.1 % (38.7-80.0); PLATELET COUNT 369 x10e3/uL (140-360); RED BLOOD COUNT 4.21 x10e6/uL (4.3-5.7); RED CELL DISTRIBUTION WIDTH 19.3 % (11.7-14.4)
[2019-06-04] MEDS: B&O 60MG R/S 60 MG SUPP PR SCH ×3 (06:00→21:44)
[2019-06-04 06:06] LABS: ANION GAP 12.1 mmol/L (8-16); BLOOD UREA NITROGEN 5 mg/dL (7-26); BUN/CREATININE RATIO 6 (6-25); CALCIUM 8.3 mg/dL (8.4-10.2); CARBON DIOXIDE 31 mmol/L (22-29); CHLORIDE 100 mmol/L (98-107); CREATININE, SERUM 0.79 mg/dL (0.72-1.25); EST GLOMERULAR FILTRATION RATE > 60 ML/MIN (60-); GLUCOSE 188 mg/dL (74-118); POTASSIUM 3.1 mmol/L (3.5-5.1); SODIUM 140 mmol/L (136-145)
--- NOTE | 2019-06-04 07:19 | NUR ---
Bedside report given to day nurse. Patient resting in bed, no s/s of distress. All safety measures in place.
[2019-06-04] MEDS: INSULIN REGULAR, HUMAN 100 UNIT/1 ML 3ML VIAL SQ SCH ×4 (08:10→21:05)
[2019-06-04] MEDS: GLIMEPIRIDE 2 MG TAB PO SCH ×2 (08:59→17:13)
[2019-06-04] MEDS: SUCRALFATE 1 GM TAB PO SCH ×4 (08:59→21:05)
[2019-06-04] MEDS: METFORMIN HCL 500 MG TAB PO SCH ×2 (09:00→17:14)
[2019-06-04] MEDS: PANTOPRAZOLE SOD 40 MG TABEC PO SCH (09:00)
[2019-06-04] MEDS: CIPROFLOXACIN 500 MG TAB PO SCH ×2 (09:00→21:05)
[2019-06-04] MEDS: CHLORTHALIDONE 25 MG TAB PO SCH (09:01)
[2019-06-04] MEDS: TAMSULOSIN HCL 0.4 MG CAP PO SCH (09:01)
--- NOTE | 2019-06-04 09:10 | NUR ---
gonzalez removed by Dr. Michaud, pt tolerated well. pt dtv [phone], will continue to monitor .
[2019-06-04] MEDS: HYDROCODONE/APAP 7.5MG-325MG 1 EA TAB PO PRN ×3 (09:36→22:16)
--- NOTE | 2019-06-04 09:54 | NUR ---
pt in severe pain medicated with prn meds, pt bladder scanned 29cc of urine noted in bladder according to scanner, paged dr collier for further orders, awaiting call back
--- NOTE | 2019-06-04 10:20 | NUR ---
PAGED DR HOLLINGSWORTH AGAIN AWAITING CALL BACK
[2019-06-04] MEDS: CEFUROXIME AXETIL 250 MG TAB PO SCH ×2 (11:08→21:05)
--- NOTE | 2019-06-04 12:03 | NUR ---
PAGED DR HOLLINGSWORTH AWAITING CALL BACK
[2019-06-04] MEDS: ACETAMINOPHEN/CODEINE 300MG - 30MG TAB PO PRN ×2 (12:26→21:11)
--- NOTE | 2019-06-04 12:26 | NUR ---
SPOKE WITH DR HOLLINGSWORTH RE: PT INCREASED PAIN AND BLADDER SCANNER RESULTS OF 30CC PT VOIDING 50CC, INFORMED NURSE TO CONTINUE TO WATCH PT.
--- NOTE | 2019-06-04 13:54 | NUR ---
Pt in pain, did not want to participate in DPA at present
[2019-06-04] MEDS: PHENAZOPYRIDINE HCL 100 MG TAB PO SCH ×2 (15:19→21:05)
[2019-06-04] MEDS: ATORVASTATIN 20 MG TAB PO SCH (21:05)
--- NOTE | 2019-06-04 21:05 | NUR ---
4 units of regular insulin administered SQ for fingerstick blood glucose of 132.
[2019-06-05] VITALS: BP 130/59
[2019-06-05] MEDS: DEXTROSE 5%/0.9% SOD CHL 1,000 ML IV SCH (00:27)
[2019-06-05 04:00] VITALS: BP 128/58
[2019-06-05] MEDS: B&O 60MG R/S 60 MG SUPP PR SCH (05:59)
--- NOTE | 2019-06-05 06:54 | NUR ---
Bedside report given to day nurse. Patient resting in bed, no s/s of distress or c/o pain at this time. All safety measures in place.
--- NOTE | 2019-06-05 07:00 | NUR ---
bedside shift report received pt in stable condition, denies pain at this time, updated on poc vocied understanding, call light in reach will continue to monitor
[2019-06-05] MEDS: INSULIN REGULAR, HUMAN 100 UNIT/1 ML 3ML VIAL SQ SCH (07:30)
[2019-06-05 08:16] VITALS: BP 128/58
[2019-06-05 08:45] VITALS: BP 126/62
[2019-06-05] MEDS: GLIMEPIRIDE 2 MG TAB PO SCH (08:51)
[2019-06-05] MEDS: SUCRALFATE 1 GM TAB PO SCH ×2 (08:51→11:15)
[2019-06-05] MEDS: TAMSULOSIN HCL 0.4 MG CAP PO SCH (08:52)
[2019-06-05] MEDS: CIPROFLOXACIN 500 MG TAB PO SCH (08:52)
[2019-06-05] MEDS: PANTOPRAZOLE SOD 40 MG TABEC PO SCH (08:52)
[2019-06-05] MEDS: METFORMIN HCL 500 MG TAB PO SCH (08:52)
[2019-06-05] MEDS: CEFUROXIME AXETIL 250 MG TAB PO SCH (08:52)
[2019-06-05] MEDS: PHENAZOPYRIDINE HCL 100 MG TAB PO SCH (08:53)
[2019-06-05] MEDS: CHLORTHALIDONE 25 MG TAB PO SCH (08:53)
[2019-06-05] MEDS: HYDROCODONE/APAP 7.5MG-325MG 1 EA TAB PO PRN (08:56)
[2019-06-05] MEDS ORDERED: CIPRO500 MG PO (10:48)
[2019-06-05] MEDS ORDERED: TYLENOL WITH C1 EACH PO (10:48)
--- NOTE | 2019-06-16 17:25 | Operative Report ---
DATE OF PROCEDURE: 06/02/2019 SURGEON: Yousif Michaud MD PREOPERATIVE DIAGNOSIS: Bladder tumor. POSTOPERATIVE DIAGNOSIS: Large TCC of the bladder. OPERATIVE PROCEDURE: 1. Cystoscopy. 2. Transurethral resection of bladder tumor. ANESTHESIA: General anesthesia. ESTIMATED BLOOD LOSS: Minimal. INDICATIONS: Mr. Garett Fernandez is a 63-year-old gentleman with a prior history of small TCC of the bladder, who recently presented to the local emergency room with gross hematuria. He was found at that time a 4 cm recurrent tumor in his bladder. He now presents for definitive surgical management of this problem. DESCRIPTION OF PROCEDURE: The patient was brought into the operating room, placed in supine position. After administration of general anesthesia, he was placed in dorsal lithotomy position and prepped and draped in the usual sterile fashion. Cystourethroscopy was performed using 20-Maori cystoscope. The anterior and posterior urethra were noted to be normal. The prostate was moderately enlarged, but without any vanessa obstruction. The bladder was entered with mild difficulty. Upon entrance into the bladder, there was a large papillary tumor seen coming from the dome at its juncture with the posterior wall. There were no other significant lesions appreciated. The base around the tumor was noted to be otherwise unremarkable. The bladder was left full and the cystoscope and sheath were removed. A 26-Maori extra long sheath was then placed and the Scales resectoscope was used to resect the tissue down to the muscle. There was no gross perforation of the bladder, but some bottles of perivesicular fat were noted. Once adequate hemostasis was obtained, the pathologic material was removed with an Ellik evacuator and sent to Pathology for microscopic analysis. The cystoscope and sheath were then removed and a 24-Maori Coude catheter was then placed in a retrograde fashion and the balloon inflated with 45 mL of sterile water. The urinary efflux was noted to be blood tinged. The patient was returned to supine position and anesthesia was reversed. He was transferred to a bed and taken to the Postanesthesia Care Unit in good condition. Of note, the needle and instrument count were correct at the conclusion of the case. Yousif Michaud MD HLW/MODL /[id number]
== END 2019-06-05 11:39 | disposition home or self-care (01) ==
LOC: OR 13:30 → PACU V 13:32 → MED/SURG 15:50
PROVIDERS: ADMIT Urology; ATTEND Urology
DX: C67.8 Malignant neoplasm of overlapping sites of bladder (principal); Z01.810 Encounter for preprocedural cardiovascular examination; Z01.811 Encounter for preprocedural respiratory examination; J44.9 Chronic obstructive pulmonary disease, unspecified; G47.33 Obstructive sleep apnea (adult) (pediatric); I25.10 Atherosclerotic heart disease of native coronary artery without angina pectoris
CPT/HCPCS: 36415 ×4; 51700; 52240; 71046; 74420; 80048 ×2; 82948 ×4; 85025 ×2; 88305; 93005; 96360; 96361; 96372 ×2; C1758; G0378 ×4; J0696; J1100; J1170; J1817; J2001; J2250; J2270; J2704; J3010; J7042 ×3; Q9967; S0164 ×3

== ENCOUNTER → 2019-10-06 | Day surgery (SDC) | payer OTHER ==
[2019-10-03 15:15] LABS: BASOPHILS # (AUTO) 0.1 (0.0-0.1); BASOPHILS % 1.2 % (0.0-1.0); EOSINOPHILS # (AUTO) 0.8 (0.0-0.4); EOSINOPHILS % 7.6 % (0.0-6.0); HEMATOCRIT 46.7 % (38.2-49.6); HEMOGLOBIN 14.7 g/dL (14.0-18.0); LYMPHOCYTES # (AUTO) 2.4 (1.0-3.2); LYMPHOCYTES % 23.9 % (18.0-39.1); MEAN CORPUSCULAR HEMOGLOBIN 26.9 pg (28-32); MEAN CORPUSCULAR HGB CONC 31.5 g/dL (31-35); MEAN CORPUSCULAR VOLUME 85.5 fL (81-99); MONOCYTES # (AUTO) 0.7 (0.2-0.8); MONOCYTES % 6.8 % (4.4-11.3); NEUTROPHILS % 60.1 % (38.7-80.0); PLATELET COUNT 330 x10e3/uL (140-360); RED BLOOD COUNT 5.46 x10e6/uL (4.3-5.7); RED CELL DISTRIBUTION WIDTH 20.1 % (11.7-14.4)
[2019-10-03 15:28] LABS: ANION GAP 15.9 mmol/L (8-16); BLOOD UREA NITROGEN 9 mg/dL (7-26); BUN/CREATININE RATIO 11 (6-25); CARBON DIOXIDE 27 mmol/L (22-29); CHLORIDE 105 mmol/L (98-107); CREATININE, SERUM 0.85 mg/dL (0.72-1.25); EST GLOMERULAR FILTRATION RATE > 60 ML/MIN (60-); GLUCOSE 112 mg/dL (74-118); POTASSIUM 3.9 mmol/L (3.5-5.1); SODIUM 144 mmol/L (136-145)
[~2019-10-06] MED LIST changes: +CIPRO500 MG PO; +DEXAMETHASONE SOD PHOS INJ 4 MG/ML VIAL ONE; +ETOMIDATE 2 MG/ML 10 ML INJ IV ONE; +FENTANYL CITRATE/PF 100MCG/2 ML INJ ONE; -IOPAMIDOL 300MG/ML 50ML INFUS..BTL IV ONE; +KETOROLAC TROMETHAMINE 30 MG/ML VIAL ONE; +LIDOCAINE HCL 2% LOCAL INJ 5 ML SDV VIAL INJ ONE; +MIDAZOLAM HCL 2 MG/2 ML VIAL ONE; +ONDANSETRON HCL INJ 2MG/ML 2ML 2 MG/ML VIAL ONE; +PROPOFOL IV EMULSION 10 MG/ML 20 ML VIAL ONE; +SEVOFLURANE INHAL SOLN 250 ML PEN BTL ONE; +TYLENOL WITH C1 EACH PO
[2019-10-06 08:55] VITALS: BP 123/61
--- NOTE | 2019-10-13 09:46 | Operative Report ---
DATE OF PROCEDURE: 10/06/2019 SURGEON: Yousif Michaud MD PREOPERATIVE DIAGNOSIS: History of TCC of the bladder. POSTOPERATIVE DIAGNOSIS: History of TCC of the bladder. OPERATIVE PROCEDURE: 1. Cystoscopy. 2. Bladder biopsy. ANESTHESIA: General anesthesia. ESTIMATED BLOOD LOSS: Minimal. INDICATIONS: Mr. Garett Fernandez is a 64-year-old man with a history of TCC of the bladder, which has been recurrent. He has completed a 6-week course of intravesical BCG approximately 6 weeks ago and now presents for repeat posttherapy biopsy. PROCEDURE IN DETAIL: The patient was brought to the operative room, placed in supine position. After initiation of general anesthesia, he was placed in dorsal lithotomy position and prepped and draped in usual sterile fashion. Cystourethroscopy was performed using a 22-Frisian cystoscope. The anterior and posterior urethra were noted to be normal. The prostate revealed mild elevation of the median bar. The bladder was entered without difficulty. Upon entrance into the bladder, the ureteral orifices were in normal anatomical position. There was a sessile patch of the TCC seen off the less lateral wall in the mid plane. There was also an area of erythema noted on the posterior wall. The cold cup bladder biopsy forceps were used to obtain biopsies from both of these locations. The posterior wall biopsy was fulgurated in its entirety. There was no bleeding seen again. After the biopsy done of the tumor on the left lateral wall, the entire tumor and its surrounding mucosa were fulgurated using the Bugbee electrode. There was no visible abnormality seen in the remaining mucosa at the conclusion of the procedure. The bladder was then drained in its entirety and the cystoscope and sheath were removed. The patient was returned to supine position and anesthesia was reversed. He was transferred to bed and taken to the postanesthesia care unit in good condition. Of note, the needle and instrument count were correct at the conclusion of the case. Yousif Michaud MD HLW/MODL /[id number]
== END | disposition home or self-care (01) ==
LOC: OR 05:11
PROVIDERS: ATTEND Urology
DX: C67.2 Malignant neoplasm of lateral wall of bladder (principal); I45.10 Unspecified right bundle-branch block; I44.4 Left anterior fascicular block; G47.33 Obstructive sleep apnea (adult) (pediatric); J45.909 Unspecified asthma, uncomplicated; I10 Essential (primary) hypertension; I25.10 Atherosclerotic heart disease of native coronary artery without angina pectoris; E11.9 Type 2 diabetes mellitus without complications; F17.210 Nicotine dependence, cigarettes, uncomplicated; Z79.84 Long term (current) use of oral hypoglycemic drugs
CPT/HCPCS: 36415 ×2; 52214; 80048; 82948; 85025; 87635; 88305; 93005; J0696; J1100; J1885; J2001; J2250; J2405; J2704; J3010

== ENCOUNTER → 2020-01-16 | Outpatient (CLI) | payer OTHER ==
[~2020-01-16] MED LIST changes: -CEFTRIAXONE SOD 1 GM/NS 50 ML 50 ML IV ONE; -DEXAMETHASONE SOD PHOS INJ 4 MG/ML VIAL ONE; -ETOMIDATE 2 MG/ML 10 ML INJ IV ONE; -FENTANYL CITRATE/PF 100MCG/2 ML INJ ONE; -KETOROLAC TROMETHAMINE 30 MG/ML VIAL ONE; -LIDOCAINE HCL 2% LOCAL INJ 5 ML SDV VIAL INJ ONE; -MIDAZOLAM HCL 2 MG/2 ML VIAL ONE; -ONDANSETRON HCL INJ 2MG/ML 2ML 2 MG/ML VIAL ONE; -PROPOFOL IV EMULSION 10 MG/ML 20 ML VIAL ONE; -SEVOFLURANE INHAL SOLN 250 ML PEN BTL ONE
--- NOTE | 2020-01-16 11:14 | Diagnostic Imaging Report ---
Exam: Testicular ultrasound. Clinical History: Hydrocele Comparison: Testicular ultrasound of 05/28/2019 Findings: Sonographic evaluation of the testicles. Both testes are normal in echogenicity and size without intratesticular mass. Normal bilateral symmetric blood flow without evidence of testicular torsion. Right: The right testicle measures 4.4 x 2.5 x 3.5 cm and appears unremarkable. The right epididymis measures 1.1 x 0.7 x 0.6 cm. Moderate right hydrocele. No varicocele. Left: The left testicle measures 4.8 x 2.8 x 3.5 cm and appears unremarkable. Left epididymis is not well-visualized. Large right hydrocele. Impression: Bilateral hydroceles left greater than right. Signed by: Margarita Steele MD on 01/16/2020 11:11 AM
== END ==
LOC: US 09:32
PROVIDERS: ATTEND Urology
DX: N43.3 Hydrocele, unspecified (principal)
CPT/HCPCS: 76870; 93976